=== PATIENT | female | born 1950 | race Caucasian/White ===

== ENCOUNTER 2022-07-19 10:19 | Outpatient (CLI) | payer MEDICARE, SELFPAY ==
--- NOTE | 2022-07-19 10:00 | DI.RAD_ITS ---
Exam(s) XR KNEE RT 2V AP,LAT XR STANDING ALIGNMENT EXAM: XR STANDING ALIGNMENT CLINICAL HISTORY: eval R knee alignment. TECHNIQUE: 2D digital imaging was performed. Standing AP views were performed from the pelvis throu gh the ankles. AP and lateral views of the right knee. COMPARISON: CR XR KNEE RT 2V AP,LAT from 07/19/2022 FINDINGS: BONES: No acute fracture is present. No bony destructive lesion is seen. Leg length discrepancy: Left femoral head projects 9 millimeters superior to the right. JOINTS: Knees: Left total knee prosthesis is unremarkable. There are severe degenerative changes of the medial femoral tibial joint with a [id number] appearance. There is prominent periarticular spu rring. There is flattening of the medial femoral condyle and medial tibial plateau. There is severe varus angulation and compensatory widening of the lateral femoral tibial joint space which also show s periarticular spurring. Prominent spurring is also noted at the patella. There are loose bodies s een anteriorly, beneath the patella. Vascular calcifications are present. The ankle joints are unremarkable. The hip joints show mild acetabular spurring. SOFT TISSUE: Vascular calcifications. IMPRESSION: Severe degenerative changes medial femoral tibial joint of the right knee. . 9 millimeter leg length discrepancy. DATA REPOSITORY: RADIATION DOSE DELIVERED:
== END 2022-07-19 10:20 | disposition home or self-care (01) ==
LOC: DIORS 10:19
PROVIDERS: PCP Family Medicine; Referring Provider Family Medicine; Visit Provider Student in an Organized Health Care Education/Training Program
DX: Z96.641 Presence of right artificial hip joint; M76.891 Other specified enthesopathies of right lower limb, excluding foot
CPT/HCPCS: 99203; 73560; 77073

== ENCOUNTER 2022-08-05 02:58 | Outpatient (CLI) | payer MEDICARE, SELFPAY ==
[2022-08-05 14:17] LABS: HGB 13.7 g/dL (11.2-15.7); MCH 30.4 pg (27.0-33.0); MCHC 32.6 % (32.0-36.0); MCV 93 fL (80-95); MPV 12.4 fL (8.0-11.0); Platelet Count 147 10^3/uL (130-400); RDW 12.6 % (11.7-14.6); RDW-SD 43.4 fL; WBC 7.52 10^3/uL (4.4-10.8)
[2022-08-05 15:08] LABS: Anion Gap 6.7 mmol/L (3-11); BUN 22 mg/dL (7-18); CO2 29.3 mmol/L (21.0-32.0); CREATININE 0.9 mg/dL (0.55-1.02); Calcium 8.8 mg/dL (8.5-10.1); Chloride 106 mmol/L (98-107); Estimated GFR 67.92 (mL/min/1.73m2); Glucose 129 mg/dL (74-106); Potassium 4.2 mmol/L (3.5-5.1); Sodium 142 mmol/L (136-145)
== END 2022-08-05 02:59 | disposition home or self-care (01) ==
LOC: LBO 02:58
PROVIDERS: PCP Family Medicine; Visit Provider Student in an Organized Health Care Education/Training Program
DX: M17.11 Unilateral primary osteoarthritis, right knee (principal); Z01.818 Encounter for other preprocedural examination
CPT/HCPCS: 36415; 80048; 85027

== ENCOUNTER 2022-08-13 05:54 | Day surgery (SDC) | payer MEDICARE, SELFPAY ==
[2022-08-13] VITALS (8 sets, daily range): BP systolic 150–166; BP diastolic 57–81; PULSE 65–77; RESP 14–21; TEMP 35.9–36.6; O2SAT 94–97; BMI 26.6
[2022-08-13] MEDS: Acetaminophen 500 MG TAB 1000 MG PO (06:38)
[2022-08-13] MEDS: Meloxicam 15 MG TAB PO (06:39)
[2022-08-13] MEDS: Gabapentin 300 MG CAP PO (06:39)
[2022-08-13] MEDS: Lactated Ringers 1,000 ML 80 ML IV (06:45)
--- NOTE | 2022-08-13 06:47 | W.ANESPRE ---
General Info Date of Service Date Performed: 08/13/22 Height: 5 ft 3.5 in Weight: 69.4 kg Body Mass Index (BMI): 26.6 Surgical Procedure: Operation Date: 08/13/22 07:55 Proposed Procedure Side Surgeon p Knee Total Arthroplasty, Cemented CR Right Morro Aguayo MD Meds Allergies and Home Medications Allergies Allergy/AdvReac Type Severity Reaction Status Date / Time Sulfa (Sulfonamide Allergy Severe Skin Rash Verified 08/12/22 12:20 Antibiotics) Home Medication Medication Instructions Recorded aspirin 81 mg tablet,delayed 81 mg PO DAILY 07/19/22 release (Adult Aspirin Regimen) captopril 100 mg tablet 100 mg PO TID 07/19/22 clonazepam 0.5 mg tablet 0.5 mg PO BID 07/19/22 doxazosin 2 mg tablet 2 mg PO DAILY 07/19/22 simvastatin 40 mg tablet 40 mg PO DAILY 07/19/22 acetaminophen 500 mg capsule 500 mg PO BID 08/13/22 Current Visit Medications: Current Medications Generic Name Dose Route Start Last Admin Trade Name Jefferson PRN Reason Stop Dose Admin Acetaminophen 1,000 mg 08/13/22 06:00 08/13/22 06:38 Acetaminophen 500 Mg Tab PO 08/13/22 16:00 1,000 mg PREOP IDALIA Administration Gabapentin 300 mg 08/13/22 06:00 08/13/22 06:39 Gabapentin 300 Mg Cap PO 08/13/22 16:00 300 mg PREOP IDALIA Administration Tranexamic Acid 1,000 mg/ 60 mls @ 360 mls/hr 08/13/22 06:00 Sodium Chloride IVPB 08/13/22 16:00 PREOP IDALIA Ringer's Solution 1,000 mls @ 80 mls/hr 08/13/22 06:00 IV 09/11/22 23:59 INFUSION IDALIA Cefazolin Sodium/Dextrose 2 gm in 50 mls @ 100 mls/hr 08/13/22 06:00 Ancef Duplex IVPB 09/11/22 23:59 PREOP IDALIA IV Miscellaneous Supplies 1 each 08/13/22 06:00 Iv Access IV 09/11/22 23:59 DIRECTED IDALIA Meloxicam 15 mg 08/13/22 06:00 08/13/22 06:39 Meloxicam 15 Mg Tab PO 08/13/22 18:00 15 mg PREOP IDALIA Administration Sodium Chloride 0 ml 08/13/22 06:00 Normal Saline Flush 10 Ml Syr IV 09/11/22 23:59 PRN PRN Sodium Chloride 0 ml 08/13/22 06:00 Normal Saline 10 Ml Vial IJ 09/11/22 23:59 DIRECTED PRN Sterile Water 0 ml 08/13/22 06:00 Water,Injection,Sterile 10 Ml Vial IJ 09/11/22 23:59 DIRECTED PRN PFSH Active Problems Active Problems: Problem Status Onset Code Tobacco dependence F17.200 Osteoarthritis of right knee M17.11 Medical History Medical History Hyperlipidemia Hypertension Peripheral edema Denies Squamous cell carcinoma of skin Left anterior tariq - two excisions - last one on 06/21/22 in [facility] - still healing Uterine prolapse Medical History Comments:: pt. states she had a hard waking with your hysterectomy Surgical History Surgical History (Updated 08/13/22 @ 06:19 by Johanna Patino) History of hysterectomy 12/05/21 History of left knee replacement Hx of colonoscopy S/P skin biopsy Status post tubal ligation Tobacco Smoking/Tobacco Use Status: Current every day Tobacco Type: cigarettes Alcohol Alcohol Intake: former Substance Use Substance use: Never Substance use type: does not use Vital Signs and Lab Results Vital Signs Most Recent Vital Signs in EMR: Most Recent Vital Signs Temp Pulse Resp BP Pulse Ox 36.4 C L 66 18 159/67 H 97 08/13/22 06:21 08/13/22 06:21 08/13/22 06:21 08/13/22 06:21 08/13/22 06:21 Lab Results Blood Type / Crossmatch: No Data to Display Complete Blood Count: White Blood Count 7.52 10^3/uL (4.4-10.8) 08/05/22 14:08 Red Blood Count 4.50 10^6/uL (3.93-5.22) 08/05/22 14:08 Hemoglobin 13.7 g/dL (11.2-15.7) 08/05/22 14:08 Hematocrit 42.0 % (36.0-46.0) 08/05/22 14:08 Platelet Count 147 10^3/uL (130-400) 08/05/22 14:08 Complete Metabolic Panel: Sodium 142 mmol/L (136-145) 08/05/22 14:08 Potassium 4.2 mmol/L (3.5-5.1) 08/05/22 14:08 Chloride 106 mmol/L (98-107) 08/05/22 14:08 Carbon Dioxide 29.3 mmol/L (21.0-32.0) 08/05/22 14:08 BUN 22 mg/dL (7-18) H 08/05/22 14:08 Creatinine 0.9 mg/dL (0.55-1.02) 08/05/22 14:08 Est GFR (CKD-EPI 2020) 67.92 (mL/min/1.73m2) 08/05/22 14:08 Calcium 8.8 mg/dL (8.5-10.1) 08/05/22 14:08 Glucose 129 mg/dL (74-106) H 08/05/22 14:08 Liver Function Panel: No Data to Display Coagulation Panel: No Data to Display Cardiac Panel: No Data to Display Arterial Blood Gas: No Data to Display Venous Blood Gas: No Data to Display Pancreas Panel: No Data to Display Thyroid Panel: No Data to Display Infectious Disease: No Data to Display Blood Cultures: No Data to Display Toxicology Panel: No Data to Display Anesthesia Assessment and Plan Anesthesia History Personal History: No History of Anesthesia Complications Family History: No Family History of Anesthesia Complications Exercise Tolerance Exercise Tolerance: Metabolic Equivalents>4 Pertinent Negatives Pertinent Negatives: No Symptoms of GERD, No Major Cardiovascular Symptoms or Complaints, No Major Pulmonary Symptoms or Complaints and No History of CVA/TIA Cardiac & Pulmonary Exam Cardiac Exam: Normal S1/S2 Heart Sounds Pulmonary Exam: Clear Bilateral Breath Sounds Implantable Cardiac Device Does patient have a Pacemaker or an ICD?: No Airway Exam Known Difficult Airway: No Mallampati Class: 3 Mouth Opening: Normal (> 3cm) Thyromental Distance: Greater than 3 cm Neck Range of Motion: Full ROM Neck Circumference: Normal Teeth Condition: Generalized Poor Dentition Airway Comments: Missing back lowers ASA Classification ASA Score: ASA 2 Emergency Case?: No NPO Status NPO Status: NPO Clears >2 hours, Solids >8 hours Anesthesia Plan Resuscitation Status: Full Code Anesthesia Technique: Spinal Anesthesia Airway Planned: Natural Airway Pain Management: Surgeon and patient request nerve block and Intrathecal Analgesia Monitors Used: Standard Monitors
--- NOTE | 2022-08-13 07:24 | DSE_ITS ---
Date of service: 08/13/22 Time of Service: 07:25 DS: Diagnosis Discharge Diagnosis (1) Osteoarthritis of right knee: Status: Chronic Discharge Plan Disposition Patient Disposition: Home Condition: Good Discharge Details Reason For Visit: Right Knee DJD Attending Provider: Morro Aguayo Primary Care Provider: Ray Irizarry Home Meds and New Rx's Prescriptions: New aspirin 81 mg tablet,delayed release (DR/EC) 81 mg PO BID Qty: 60 0RF tramadol 50 mg tablet 50 mg PO Q4H PRNQty: 18 0RF acetaminophen 500 mg tablet 1,000 mg PO Q8H PRN (Reason: pain) Qty: 90 3RF gabapentin 300 mg capsule 300 mg PO QHS Qty: 14 0RF meloxicam 15 mg tablet 15 mg PO DAILY Qty: 30 3RF Continued captopril 100 mg tablet 100 mg PO TID clonazepam 0.5 mg tablet 0.5 mg PO BID doxazosin 2 mg tablet 2 mg PO DAILY simvastatin 40 mg tablet 40 mg PO DAILY Discontinued aspirin [Adult Aspirin Regimen] 81 mg tablet,delayed release (DR/EC) 81 mg PO DAILY acetaminophen [Tylenol Extra Strength] 500 mg Capsule 500 mg PO BID Discharge Instructions Additional Instructions: Total Knee Discharge Instructions Activity: The most important activity is to walk and to work on gentle motion (both flexion and extension). You should try to take short walks a few times a day. It is important that when resting you work on keeping the knee straight. Avoid putting a pillow behind the knee as this will encourage flexion. Work on range of motion exercises as provided by Physical Therapy. - Start outpatient physical therapy within 2 weeks. - You should wear the TIO hose on both legs for 2 weeks. You may remove these at night. You may also use any compression sock in place of the TIO hose. - Utilize [employer] to review exercises, see videos on exercises and obtain basic information pertaining to your surgery and your recovery. Dressing: Remove the Rafael wrap by 2 days after your surgery and put on the TIO stocking given to you from the hospital. Keep the surgical dressing (underneath the RAFAEL wrap) in place for at least one week. After the first week it may be removed and replaced with light gauze and tape or nothing. The wound and dr danial may get wet after 3 days but avoid soaking the dressing or otherwise it will need to be changed. Many people prefer covering the dressing with cling wrap (saran wrap) to minimize it from getting soaked. If it gets wet, just pat dry. If it starts to peel off then it will need to be changed. Medications: - You should take Tylenol and anti-inflammatory Meloxicam as your primary pain control medications. If the Meloxicam is too expensive or not covered, please call the office for another alternative (Advil/Ibuprofen or Naproxen/Aleve) - You have been prescribed a stronger pain medication Tramadol for breakthrough pain, take as needed as prescribed. - You have been prescribed Gabapentin to take at night for restlessness and nerve pain. - You will be taking Aspirin 81mg twice a day for DVT prevention unless instructed otherwise. - If you have constipation you should take Colace or Miralax (both [id number]). It takes most people 3-4 days to have a bowel movement. Follow-up: 2 weeks If you have any acute concerns or questions, please do not hesitate to contact the office at [phone]. You may contact Dr. Aguayo with any questions after hours through the hospital at [phone] or on his cell phone at [phone]. Referrals: Morro Aguayo MD [ [facility] STAFF PHYSICIAN] - Equipment/Supplies: Walker Activity:: Elevate Remove Dressings/Wound Care:: Do Not Remove Shower/Bathe:: Cover Diet:: As Tolerated Discharge Orders Discharge Orders: Discharge Order (Routine); Ordered 08/13/22 Ordered By: Morro Aguayo DS: Summary Time Spent with Patient providing and/or coordinating discharge services: Less than 30 minutes Status at Discharge Functional status at discharge: uses cane/walker Overall status at discharge: patient is progressing back to baseline Mental Status: mental status grossly normal Speech and Movement: speech and movement normal Mood: congruent mood Affect: normal affect Exam Psych Mental Status: mental status grossly normal Speech and Movement: speech and movement normal Mood: congruent mood Affect: normal affect DS: Data Vitals/I&O Vitals and I&O: Vital Signs Temperature 36.4 C L 08/13/22 06:21 Pulse 66 08/13/22 06:21 Pulse Rhythm Regular 08/13/22 06:21 Respiratory Rate 18 01/31/23 06:21 Respiratory Depth Normal 08/13/22 06:21 Blood Pressure 159/67 H 08/13/22 06:21 Pulse Oximetry 97 08/13/22 06:21 Oxygen Delivery Method Room Air 08/13/22 06:21 Oxygen Flow Rate 0 08/13/22 06:21 Pain Level 0 08/13/22 06:21 Intake & Output 08/12/22 08/12/22 08/13/22 11:59 23:59 11:59 Weight 70.307 kg 69.4 kg PFSH All Active Problems Tobacco dependence (Acute) Osteoarthritis of right knee (Chronic) Medical History Hyperlipidemia Hypertension Peripheral edema Denies Squamous cell carcinoma of skin Left anterior tariq - two excisions - last one on 06/21/22 in [facility] - still healing Uterine prolapse Surgical History History of hysterectomy 12/05/21 History of left knee replacement Hx of colonoscopy S/P skin biopsy Status post tubal ligation Social History Smoking/Tobacco Use Status: Current every day Tobacco Type: cigarettes Smoking risk assessment performed?: Yes Alcohol Intake: former Drug use: Never Substance use type: does not use Do you feel safe at home: Yes Do you feel safe in your relationship?: Yes Additional Social history: unable to assess privately Time Spent with Patient Time Spent with Patient: <45 minutes Time was spent: preparing to see the patient(eg.review tests) and ordering medications,tests, procedures
[2022-08-13] MEDS: ceFAZolin 2 GM/50 ML BAG IVPB (08:05)
--- NOTE | 2022-08-13 08:27 | W.ANESNERVE ---
Nerve Block Single Injection Procedure Date and Time Date Performed: 08/13/22 Procedure Start: 07:20 Location Where Procedure Performed Procedure Location: Day Surgery Unit Reason Performed: Postoperative Analgesia Requesting Provider: Morro Aguayo Timeout Performed Timeout Performed: Yes Monitoring Used ECG, Blood Pressure and SpO2 Sterility Sterility: Hand Hygiene, Surgical Cap, Surgical Mask, Sterile Gloves and Chlorhexidine Sedation Given During Procedure Sedation Given (Indicate Dose Given): Versed IV Dose:: 2 mg Patient Mental Status Patient Mental Status: Awake Nerve Block 1st Nerve Block: Laterality: Right Block Type: Adductor Canal Ultrasound Image Saved?: Yes Needle / Catheter Used: 100mm SonoPlex II Local Anesthetic Bolus (Indicate Dose Given): Lidocaine used for local infiltration of skin, Injected in 3-5ml increments after negative blood aspiration and Bupivacaine 0.25% Dose:: 15 ml Additives (Indicate Dose Given): None Ultrasound: Sterile probe cover and gel used Nerve Stimulator: Not Used Paresthesia: None Procedure Tolerated: No Complications and Patient tolerated well Procedure Outcome: Successful Performed By: Nettie Willis Supervised By: Ray Ewing
--- NOTE | 2022-08-13 10:40 | W.ANESPOSTOP ---
Postoperative Evaluation Date, Time and Location Date Performed: 08/13/22 Time Performed: 10:40 Patient Location: Day Surgery Unit Vital Signs Most Recent Imported Vital Signs: Most Recent Vital Signs Temp Pulse Resp BP Pulse Ox 36.5 C 70 14 164/66 H 97 08/13/22 10:19 08/13/22 10:19 08/13/22 10:19 08/13/22 10:19 08/13/22 10:19 Pain Score Most Recent Pain Score: Most Recent Pain Score Pain Level 0 08/13/22 10:19 Assessment Mental Status: Awake (Alert & Oriented to Patient Baseline) Airway and Respiratory Function: Patent airway with normal (patient baseline) respiratory exam Cardiovascular Function: Hemodynamically Stable Hydration Status: Adequately Hydrated Nausea & Vomiting: No Nausea or Vomiting Pain: Pt. Denies Any Pain Peripheral Nerve Block: Regional nerve block not resolved at time of post operative discharge
--- NOTE | 2022-08-13 12:24 | IN_ITS ---
PT Notes Visit Reasons: Right Knee DJD
--- NOTE | 2022-08-13 12:24 | PT.INIE ---
PT Notes Visit Reasons: Right Knee DJD
--- NOTE | 2022-08-13 12:25 | IN_ITS ---
PT Notes Visit Reasons: Right Knee DJD Inpatient Physical Therapy Evaluation Date: 08/13/2022 Referring Doctor: Morro Aguayo MD PT Orders: PT CONSULT: Status post right TKA Precautions: Fall risk Patient Profile/Admitting Diagnosis: 71-year-old female with osteoarthritis of the knees status post left total knee replacement 2 years ago and status post right total knee replacement earlier today. PMHX: PFSH Medical History?(Updated 08/05/22 @ 13:21 by Jenn Choi) Hyperlipidemia Hypertension Peripheral edema DeniesSquamous cell carcinoma of skin Left anterior tariq - two excisions - [facility] 06[facility]21/[facility] - still healingUterine prolapse Surgical History?(Updated 08/05/22 @ 13:21 by Jenn Choi) History of hysterectomy History of left knee replacement S/P skin biopsy Status post tubal ligation Social History/Home Situation: Retired, , and lives in a private home with 5 steps entering the home with railings. Her bedroom and bathroom are on the first floor, she has a shower chair and elevated toilet seat with grab bars in the tub. Current Functional Limitations: Independent with all ADLs prior to her surgery Equipment Owned/DME: Wheeled walker and a shower chair for her tub Subjective: Patient states she is doing well without discomfort and her preop tightness is resolved. 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 Right assistive right knee motion is -5 to approxim ately 75 degrees with endrange drawing throughout the suprapatellar region Strength: She is full motor control throughout and strength generally rated -5/5 except for her right quads at 3/5. She is able to form a supine straight leg raise. Neuro: Intact to light touch and she has full motor control Bed Mobility/Transfers: Independent with assuming the supine to sitting to standing positions. She initially had some lightheadedness with sitting but this cleared up quickly Gait: She ambulated approximately 100 feet with an FW W, weightbearing as tolerated on the right lower extremity. She had a stable gait although I did provide some minimal contact guarding. She was able to ascend and descend stairs with a railing safely and with proper technique Balance: Static Sitting: NormalDynamic Sitting: [Normal static Standing: Stable Dynamic Standing: Stable with a walker Informed Consent/Education: Patient instructed in purpose of PT consult and plan of care. Assessment: Patient is a 71year old fe male referred to physical therapy services with the diagnosis of status post right TKA earlier today.. Patient presents with clinical signs and symptoms consistent with diagnosis, as demonstrated by the following impairment level findings: Limited range of motion of the right knee, with good quad and gluteal activation and stable gait with a wheeled walker.. Impairments are contributing to the following functional limitations: AMPAC score. Patient is assessed as a Low 80518 complexity based on the following: History: See comorbidities and social history Examination: See above for functional limitations impairments Presentation: Stable Decision Making: Low complexity based on her clinical findings Goals: Independent bed mobility and ambulation with an FW W along with full knowledge of her home exercise program Plan of Care/Treatment Plan: Today session consisted of bed mobility activities, gait training with an FW W, weightbearing as tolerated to right lower extremity, education of proper stair climbing, and issuing her written illustrated home exercise program consisting of quad and gluteal sets, ankle pumping, and knee dangling exercises over the edge of the bed. DISCHARGE RECOMMENDATIONS: Home with outpatient PT TREATMENT CODE/TIME: [id number] minutes Disclaimer: This note was created using [employer] voice recognition software. It was reviewed for major content. However, there may be multiple small discrepancies and errors due to the voice recognition aspects of the software.
--- NOTE | 2022-08-13 12:38 | W.PM.OP ---
Date of service: 08/13/22 Time of Service: 09:20 Operative Note Operative Note DATE OF PROCEDURE: 08/13/22 PRE-OP DIAGNOSIS: Right Knee Osteoarthritis POST-OP DIAGNOSIS: same PROCEDURE: Right Total Knee Replacement SURGEON: Morro Aguayo SPINNING MULE OPERATOR: Rosalba Fall ANESTHESIA TYPE: Spinal Refer to Anesthesia Record ESTIMATED BLOOD LOSS: 150 PATHOLOGY: none sent COMPLICATIONS: None Patient was transported to: PACU Patient's condition: stable Implants: 1. Depuy Attune Cruciate Retaining Femoral Component, Size 4 2. Depuy Attune Rotating Platform Tibial Component, Size 3 3. Depuy Attune 4x10 CR,RP Poly 4. Depuy Attune Patellar Component, Size 32 Indications: I have seen Pham in clinic for symptoms of knee arthritis, confirmed with radiographic findings. She has exhausted nonoperative methods and was having significant limitations in daily function and desired better function and less pain. I discussed the technical details of a knee replacement. I explained the risks of the procedure to include, but not limited to, bleeding, infection, pain, stiffness, fracture, damage to nerves and vessels, damage to muscles and tendons, loosening, need for repeat procedure, blood clot and cardiopulmonary demise. Despite these risks, Pham elected to proceed. Findings: There was significant signs of arthritis throughout the knee involving all 3 compartments with large osteophytes. Preoperative range of motion was restricted, 10-80. Procedure Description: Pham was greeted in the preoperative holding area where the correct side was identified and marked. The consent was reviewed with the patient and signed. The history and physical was updated. All questions were answered. Preoperative mediacations were administered: Acetaminophen 1000mg, Celebrex 400mg, and Gabapentin 300mg. An adductor canal block was then administered by the anesthesia team in the PACU. Pham was taken back to the operating room. A spinal anesthestic was then administered. The patient was placed into the supine position on the operating room table. A nonsterile tourniquet was placed high onto the leg but only used for cementing. Posts were placed for positioning during the procedure. All bony prominences were well padded. Prophylactic antibiotics in the form of Cefazolin were administered. 1g of Tranxemic Acid was given intravenously within 30 minutes of incision. The right leg was then prepped with Chloraprep and draped in a standard fashion with impervious stockinette and extremity drape. A second prep with Chloraprep was performed prior to placing Ioband. A timeout to confirm correct identity, side and site, procedure, allergies, anesthesia, and medical concerns was performed. With the knee in some flexion, a midline incision was made overlying the knee. Full thickness skin flaps were raised once the extensor mechanism was encountered. These were raised medially and laterally. Any bleeding was controlled with electrocautery. Once the extensor mechanism was fully exposed, a medial parapatellar arthrotomy was performed in a flexed position. All bleeding from the arthrotomy and the geniculate arteries was coagulated. A medial subperiosteal peel was performed with electrocautery to the midcoronal plane. Due to the significant varus deformity the entire medial tibial plateau was exposed. The fat pad was removed while keeping the patellar tendon protected. The anterior distal femur synovium was removed for later visualization. The ACL and PCL were resected and the anterior horn of the lateral meniscus was transected. The knee was then flexed with the patella everted. Large osteophytes from the tibia were removed. Large osteophytes from the femur were removed. Using a step drill, and based on preoperative templating, the femoral canal was entered. This was done with a step drill without any difficulty. The intramedullary distal femoral cut guide was inserted, set to a 5 degree valgus cut and 10mm cut thickness. The distal femoral cut guide was then held in position and pinned. With the soft tissues protected, the distal cut was performed. This was passed over a few times to ensure a planar cut. I then turned attention to the tibia. The extramedullary guide was placed onto the leg. The distal aspect was slid medial to adjust for position of center of ankle and stay in line with shaft of the tibia. Approximately 3-5 degrees of posterior slope was kept in the proximal cutting guide. The center of the guide was aligned with the PCL. The stylus was used to assess cut thickness. The medial side, most involved side, was set for a 3mm cut,. corresponding to 9mm laterally. This was then held in position and pinned into place with 2 additional pins and a cross pin for stability. The medial and lateral collateral ligaments were protected and the cut was performed. With this completed, it was assessed and noted to be of appropriate dimensions. The guide was removed. A spacer block was inserted and the knee was brought into extension. The 8mm spacer block provided full extension, without hyperextension and with stability of both the medial and lateral collateral ligaments was assessed. The pins from the femur and the tibia were then removed. The distal femur was then sized. The anterior stylus was placed onto the lateral ridge of the anterior femur. This indicated a size 4 femur. The external rotation of the guide was adjusted to 5 degrees to match the epicondylar axis, perpendicular to [place]?s line. The 4-in-1 cutting guide was the placed. The posterior medial femur cut was evaluated and appeared of good thickness. The spacer block was inserted underneath the cutting guide and stability was confirmed in 90 degrees of flexion. An agustin wing was used to confirm appropriate position of the anterior cut to avoid notching. This cutting guide was ensured to be flush on the cut surface and then pinned into place with headed pins. While protecting the soft tissues, quad tendon, and collateral ligaments, the anterior and posterior cuts were performed with a saw. The central two pins were removed and the posterior and anterior chamfers were cut next. The notch-cutting guide was placed. This was pinned to lateralize the femoral component as much as possible while keeping it flush on the cut surface. This was then pinned into position. A reciprocating saw was used to make the small notch cut. A trial CR femoral component was then inserted, impacted down to the cut surfaces, and the lug holes were drilled. A provisional trial tibial component was placed and the knee was brought through range of motion. The polyethylene was trialed until there was good flexion and extension with excellent stability to the medial and lateral collaterals. The patella was tracking without thumbs. The tibial cut surface was fully exposed. The medial and lateral menisci were removed. The tibia was then sized as a 3. The tibia had been previously marked during trialing to correspond to the center of the tibial component to help with rotation. The trial was aligned to this naina, approximately rotated to the medial 1/3rd of the tibial tubercle. The trial was pinned into place. The tibia was prepared with a reamer and a keel punch. The knee was then brought into extension and the patella was measured as 22mm. Using the patellar clamp and cut guide, this was resected to a flat surface with at least 13mm of thickness remaining. The size 32 patella fit the best. This was oriented and then clamped into position. The lugs were drilled. The trial components were removed. The final components, except for the polyethylene were opened on the back table. The periosteal and capsular tissues, especially posteriorly, around the knee were then systematically injected with a periarticular cocktail consisting of 246mg of Ropivacaine, 0.5mg of Epinephrine, 0.08mg of Clonidine, and 30mg of Ketorolac, diluted to 100cc.. The tourniquet was then inflated to 275mmHg. The knee was thoroughly irrigated with a pulse lavage and dried. On the back table, with the implants opened, the cement was mixed. 2 batches of medium viscosity cement were prepared with vacuum assistance. After the cement was ready it was placed on to the back side of the tibial component. Cement was placed onto the the entire surface of the femur. Cement was manual pressurized and impregnated into the cut surface of the tibia. The tibial component was then inserted into the cut surface and impacted into position. Excess cement was removed and the component was reimpacted. Again, excess cement was removed and our attention was then turned to the femur. The femoral cut surface was once again dried and cement was manually impacted into the cut surface. The femoral component was lined with the lug holes and impacted. Excess cement was removed. It was ensured to be down against the cut surface. The trial polyethylene was then inserted and the leg was brought out into full extension for the duration of the cement curing process, approximately 18min. Cement was lastly manually impacted into the cut surface of the patella and the patellar button was clamped into position and held. During this process attention was turned to the gutters of the knee and for all interfaces for any excess cement. While the cement was hardening, the knee was irrigated with Surgiphor Betadine solution. It was allowed to sit in the knee for 3 minutes and then it was thoroughly irrigated with saline. After the cement had finally cured, approximately 18min, the clamp was removed from the patella and the knee was taken through range of motion. A size 10mm polyethylene component provided the best range of motion and stability with less than 2mm gapping with medial and lateral stress and full extension without significant hyperextension. The patella was tracking with a no-thumbs technique. The trial poly was removed and once again the knee was checked for any loose, excess, or errant cement. The poly component was then inserted into position after cleaning and drying the tibial tray. The capsule was then reapproximated with a No. 1 Vicryl at multiple locations. The capsule was finally closed with a No. 2 Stratafix, barbed suture. The tourniquet was then released and the arthrotomy appeared watertight without significant bleeding. The second dosing of 1g TXA was started. Deep tissues were then reapproximated with 0 Vicryl and 2-0 Vicryl. The skin was closed with a running 3-0 Monocryl in a subcuticular fashion. This was reinforced with skin glue. A Mepilex silver dressing was applied along with a [id number] BJ wrap. A CryoCuff was applied. Pham was transferred to the hospital bed without difficulty an suffering no apparent complication. Pham has a good prognosis. Physical therapy will start today and without restrictions, weight-bearing as tolerated. Aspirin 81mg BID will be used for DVT prophylaxis.
== END 2022-08-13 12:58 | disposition home or self-care (01) ==
PROVIDERS: PCP Family Medicine; Visit Provider Student in an Organized Health Care Education/Training Program
PROC: (CPT 27447; principal; 2022-08-13 07:45)
DX: M17.11 Unilateral primary osteoarthritis, right knee (principal); F17.210 Nicotine dependence, cigarettes, uncomplicated; I10 Essential (primary) hypertension; E78.5 Hyperlipidemia, unspecified
CPT/HCPCS: 27447; C1776; 76942; 97161; J0690; J1100; J2250; J2405; J2704

== ENCOUNTER 2022-08-26 14:35 | Outpatient (CLI) | payer MEDICARE, SELFPAY ==
--- NOTE | 2022-08-26 13:30 | DI.RAD_ITS ---
Exam(s) XR KNEE RT 1V XR STANDING ALIGNMENT EXAM: XR STANDING ALIGNMENT CLINICAL HISTORY: 1ST POST OP R TKA. TECHNIQUE: 2D digital imaging was performed. Standing AP views were performed from the pelvis throu gh the ankles. COMPARISON: CR XR KNEE RT 2V AP,LAT from 07/19/2022 CR XR STANDING ALIGNMENT from 07/19/2022 CR XR KNEE RT 1V from 08/26/2022 FINDINGS: BONES: No acute fracture is present. No bony destructive lesion is seen. Leg length discrepancy: No significant overall leg length discrepancy. JOINTS: Knees: Bilateral total knee prostheses. The ankle joints are unremarkable. The hip joints are unremarkable. SOFT TISSUE: Edema right leg and anterior to patella. Vascular calcifications IMPRESSION: Bilateral total knee prostheses. No significant leg length discrepancy. DATA REPOSITORY: RADIATION DOSE DELIVERED:
== END 2022-08-26 14:36 | disposition home or self-care (01) ==
LOC: DIORS 14:35
PROVIDERS: PCP Family Medicine; Referring Provider Family Medicine; Visit Provider Student in an Organized Health Care Education/Training Program
DX: Z96.651 Presence of right artificial knee joint (principal); Z47.1 Aftercare following joint replacement surgery
CPT/HCPCS: 73560; 77073

== ENCOUNTER → 2022-09-30 10:33 | Outpatient (BNVA) | payer MEDICARE, SELFPAY | PROVIDERS: PCP Family Medicine; Referring Provider Family Medicine | DX: Z47.1 Aftercare following joint replacement surgery (principal); Z96.651 Presence of right artificial knee joint; T84.82XA Fibrosis due to internal orthopedic prosthetic devices, implants and grafts, initial encounter ==

== ENCOUNTER 2022-10-03 10:36 | Day surgery (SDC) | payer MEDICARE, SELFPAY ==
[2022-10-03] VITALS (7 sets, daily range): BP systolic 123–183; BP diastolic 47–68; PULSE 75–89; RESP 14–22; TEMP 36.4–36.5; O2SAT 93–97; BMI 25.9
--- NOTE | 2022-10-03 07:56 | W.ANESPRE ---
General Info Date of Service Date Performed: 10/03/22 Height: 5 ft 3.5 in Weight: 67.585 kg Body Mass Index (BMI): 25.9 Surgical Procedure: Operation Date: 10/03/22 12:55 Proposed Procedure Side Surgeon p Knee Manipulation of Knee Right Morro Aguayo MD Meds Allergies and Home Medications Allergies Allergy/AdvReac Type Severity Reaction Status Date / Time Sulfa (Sulfonamide Allergy Severe Skin Rash Verified 10/01/22 15:11 Antibiotics) Home Medication Medication Instructions Recorded captopril 100 mg tablet 100 mg PO TID 07/19/22 clonazepam 0.5 mg tablet 0.5 mg PO BID 07/19/22 doxazosin 2 mg tablet 2 mg PO HS 07/19/22 simvastatin 40 mg tablet 40 mg PO DAILY 07/19/22 meloxicam 15 mg tablet 15 mg PO DAILY #30 tabs 08/13/22 ondansetron 4 mg disintegrating 4 mg PO Q8H PRN nausea and 08/20/22 tablet vomiting #12 tabs aspirin 81 mg tablet,delayed 81 mg PO DAILY 09/30/22 release (Adult Aspirin Regimen) acetaminophen 500 mg tablet 1,000 mg PO Q8H PRN pain #90 tabs 10/03/22 tramadol 50 mg tablet 50 mg PO BID #10 tabs 10/03/22 Current Visit Medications: Current Medications Generic Name Dose Route Start Last Admin Trade Name Freq PRN Reason Stop Dose Admin Ringer's Solution 1,000 mls @ 80 mls/hr 10/03/22 06:00 IV 11/01/22 23:59 INFUSION IDALIA IV Miscellaneous Supplies 1 each 10/03/22 06:00 Iv Access IV 11/01/22 23:59 DIRECTED IDALIA Sodium Chloride 0 ml 10/03/22 06:00 Normal Saline Flush 10 Ml Syr IV 11/01/22 23:59 PRN PRN Sodium Chloride 0 ml 10/03/22 06:00 Normal Saline 10 Ml Vial IJ 11/01/22 23:59 DIRECTED PRN Sterile Water 0 ml 10/03/22 06:00 Water,Injection,Sterile 10 Ml Vial IJ 11/01/22 23:59 DIRECTED PRN PFSH Active Problems Active Problems: Problem Status Onset Code Arthrofibrosis of total knee arthroplasty T84.82XA History of total right knee replacement 08/13/22 Z96.651 Tobacco dependence F17.200 Medical History Medical History Hyperlipidemia Hypertension Peripheral edema Denies Squamous cell carcinoma of skin Left anterior tariq - two excisions - last one on 06/21/22 in [facility] - still healing Uterine prolapse Surgical History Surgical History History of hysterectomy 12/05/21 History of left knee replacement Hx of colonoscopy S/P skin biopsy Status post tubal ligation Tobacco Smoking/Tobacco Use Status: Current every day Tobacco Type: cigarettes Alcohol Alcohol Intake: former Substance Use Substance use: Never Substance use type: does not use Vital Signs and Lab Results Vital Signs Most Recent Vital Signs in EMR: Temp Pulse Resp BP Pulse Ox 36.5 C 84 16 164/68 H 96 10/03/22 11:16 10/03/22 11:16 10/03/22 11:16 10/03/22 11:16 10/03/22 11:16 Lab Results Blood Type / Crossmatch: No Data to Display Complete Blood Count: No Data to Display Complete Metabolic Panel: No Data to Display Liver Function Panel: No Data to Display Coagulation Panel: No Data to Display Cardiac Panel: No Data to Display Arterial Blood Gas: No Data to Display Venous Blood Gas: No Data to Display Pancreas Panel: No Data to Display Thyroid Panel: No Data to Display Infectious Disease: No Data to Display Blood Cultures: No Data to Display Toxicology Panel: No Data to Display Anesthesia Assessment and Plan Anesthesia History Personal History: PONV Family History: No Family History of Anesthesia Complications Exercise Tolerance Exercise Tolerance: Metabolic Equivalents>4 Cardiac & Pulmonary Exam Cardiac Exam: Normal S1/S2 Heart Sounds Pulmonary Exam: Clear Bilateral Breath Sounds Implantable Cardiac Device Does patient have a Pacemaker or an ICD?: No Airway Exam Known Difficult Airway: No Mallampati Class: 3 Mouth Opening: Normal (> 3cm) Thyromental Distance: Greater than 3 cm Neck Range of Motion: Full ROM Neck Circumference: Normal Teeth Condition: Generalized Poor Dentition Airway Comments: Missing back lowers ASA Classification ASA Score: ASA 2 Emergency Case?: No NPO Status NPO Status: NPO Clears >2 hours, Solids >8 hours Anesthesia Plan Resuscitation Status: Full Code Anesthesia Technique: General Anesthesia Airway Planned: Natural Airway Monitors Used: Standard Monitors Preoperative Comments:: 71 yo female for knee manipulation. Denies any health history changes since TKA. sig PMHx: HTN, smoker, Previous Anes: - TKA, spinal, prop sedation, no issues.
[2022-10-03] MEDS: Lactated Ringers 1,000 ML 80 ML IV (11:32)
--- NOTE | 2022-10-03 12:09 | W.PM.DSUDISC ---
Date of service: 10/03/22 Time of Service: 12:17 Discharge Plan Disposition Patient Disposition: Home Condition: Good Discharge Details Reason For Visit: arthrofibrosis of right TKA Attending Provider: Morro Aguayo Primary Care Provider: Ray Irizarry Home Meds and New Rx's Prescriptions: New tramadol 50 mg tablet 50 mg PO BID Qty: 10 0RF Rx Instructions: Take one tablet up to every 4 hours as needed for severe pain acetaminophen 500 mg tablet 1,000 mg PO Q8H PRN Qty: 90 0RF Rx Instructions: Take two tablets up to every 8 hours as needed for pain Continued captopril 100 mg tablet 100 mg PO TID clonazepam 0.5 mg tablet 0.5 mg PO BID doxazosin 2 mg tablet 2 mg PO HS simvastatin 40 mg tablet 40 mg PO DAILY aspirin [Adult Aspirin Regimen] 81 mg tablet,delayed release (DR/EC) 81 mg PO DAILY ondansetron 4 mg tablet,disintegrating 4 mg PO Q8H PRN (Reason: nausea and vomiting) Qty: 12 0RF meloxicam 15 mg tablet 15 mg PO DAILY Qty: 30 3RF Discontinued tramadol 50 mg tablet 50 mg PO BID PRN (Reason: pain) Qty: 30 0RF acetaminophen 500 mg tablet 1,000 mg PO Q8H PRN (Reason: pain) Qty: 90 3RF Discharge Instructions Additional Instructions: Knee Manipulation Discharge Instructions Activity: You should begin moving as soon as possible. You may work on flexion but also equally maintain extension. You may bear weight as tolerated, using crutches/walker only for support/comfort. You should apply ice directly to the knee to help with swelling and elevate when possible (especially in the first few days). You may also find that deep tissue massage throughout the muscles of the inside and back portion of the thigh along with heat can be quite helpful, especially in the evening time. Dressings: You may keep the Band-Aid on for the day. It may be removed tonight. No restrictions with shower bathing. Medications: - Prescribed tramadol which you may take BID as needed for severe pain. - Recommend to take up to 1000mg of Acetaminophen (Tylenol) every 8 hours as needed and Meloxicam 15 mg daily as needed. -Try Tylenol PM or Advil PM to assist with nighttime pain and sleep Follow-up: 7-10 days. Start physical therapy tomorrow. Equipment/Supplies: Partial Weight Bearing Crutches and Walker Remove Dressings/Wound Care:: 48 hours Shower/Bathe:: 48 hours Diet:: As Tolerated Discharge Orders Discharge Orders: Discharge Order (Routine); Ordered 10/03/22 Ordered By: Jenn Choi
--- NOTE | 2022-10-03 13:05 | W.PREOPHP ---
Assessment and Plan Assessment and plan (1) Arthrofibrosis of total knee arthroplasty: Status: Acute Assessment and plan: Pham is a 71-year-old who is status post right knee replacement with notable stiffness. She has restricted range of motion in particular into flexion. She has a history of a stiff total knee on the left side done elsewhere. I recommend we proceed with manipulation under anesthesia. I reviewed this with her and her daughter. I discussed the risk to include bleeding, swelling, pain, fracture, damage to muscles and tendons, recurrence. Despite these risk, she elects to proceed. History of Present Illness History of Present Illness Chief Complaint: Right Knee Postoperative Stiffness Narrative: Terri is a 71-year-old who is status post right knee replacement. She has struggled with her range of motion despite diligent physical therapy. She also had a knee replaced on the left side which is notably stiff. In an effort to improve her motion in light of the history on the left side and her current restrictions, I recommended proceeding with manipulation under anesthesia of the right knee. Please see the previous office note for complete detailed history. She denies any new medical issues. No chest pain or shortness of breath. Review of Systems All systems reviewed & are unremarkable except as noted in HPI and below PFSH All Active Problems Arthrofibrosis of total knee arthroplasty (Acute) History of total right knee replacement (Acute 08/13/22) Tobacco dependence (Acute) Medical History Hyperlipidemia Hypertension Peripheral edema Denies Squamous cell carcinoma of skin Left anterior tariq - two excisions - last one on 06/21/22 in [facility] - still healing Uterine prolapse Surgical History History of hysterectomy 12/05/21 History of left knee replacement Hx of colonoscopy S/P skin biopsy Status post tubal ligation Social History Smoking/Tobacco Use Status: Current every day Tobacco Type: cigarettes Smoking risk assessment performed?: Yes Alcohol Intake: former Drug use: Never Substance use type: does not use Do you feel safe at home: Yes Do you feel safe in your relationship?: Yes Meds Allergies and Home Medications Allergies Allergy/AdvReac Type Severity Reaction Status Date / Time Sulfa (Sulfonamide Allergy Severe Skin Rash Verified 10/01/22 15:11 Antibiotics) Home Medications Medication Instructions Recorded Confirmed Type captopril 100 mg tablet 100 mg PO TID 07/19/22 10/03/22 History clonazepam 0.5 mg tablet 0.5 mg PO BID 07/19/22 10/03/22 History doxazosin 2 mg tablet 2 mg PO HS 07/19/22 10/03/22 History simvastatin 40 mg tablet 40 mg PO DAILY 07/19/22 10/03/22 History meloxicam 15 mg tablet 15 mg PO DAILY #30 tabs 08/13/22 10/03/22 Rx ondansetron 4 mg disintegrating 4 mg PO Q8H PRN nausea and 08/20/22 10/01/22 Rx tablet vomiting #12 tabs aspirin 81 mg tablet,delayed 81 mg PO DAILY 09/30/22 10/03/22 History release (Adult Aspirin Regimen) acetaminophen 500 mg tablet 1,000 mg PO Q8H PRN pain #90 tabs 10/03/22 Rx tramadol 50 mg tablet 50 mg PO BID #10 tabs 10/03/22 Rx Exam Resp Auscultation: clear to auscultation bilaterally Cardio Rate: regular rate Rhythm: regular rhythm Results Last Vital Signs Temp 36.5 C 10/03/22 11:16 Pulse 84 10/03/22 11:16 Resp 16 10/03/22 11:16 BP 164/68 H 10/03/22 11:16 Pulse Ox 96 10/03/22 11:16
[2022-10-03] MEDS: Bupivacaine 0.5% Pres-Free 30 ML VIAL (13:27)
--- NOTE | 2022-10-03 14:08 | W.ANESPOSTOP ---
Postoperative Evaluation Date, Time and Location Date Performed: 10/03/22 Time Performed: 14:08 Patient Location: Day Surgery Unit Vital Signs Most Recent Imported Vital Signs: Most Recent Vital Signs Temp Pulse Resp BP Pulse Ox 36.5 C 84 16 164/68 H 96 10/03/22 13:41 10/03/22 11:16 10/03/22 11:16 10/03/22 11:16 10/03/22 11:16 Pain Score Most Recent Pain Score: Most Recent Pain Score Pain Level 0 10/03/22 11:16 Assessment Mental Status: Awake (Alert & Oriented to Patient Baseline) Airway and Respiratory Function: Patent airway with normal (patient baseline) respiratory exam Cardiovascular Function: Hemodynamically Stable Hydration Status: Adequately Hydrated Nausea & Vomiting: No Nausea or Vomiting Pain: Pain is tolerable per patient Peripheral Nerve Block: Patient did not receive a nerve block
--- NOTE | 2022-10-03 15:56 | ROE_ITS ---
Date of service: 10/03/22 Time of Service: 13:30 Operative Note Operative Note DATE OF PROCEDURE: 10/03/22 PRE-OP DIAGNOSIS: Right Knee Arthrofibrosis s/p Replacement POST-OP DIAGNOSIS: same PROCEDURE: Right Knee Manipulation Under Anesthesia SURGEON: Morro Aguayo ANESTHESIA TYPE: General:No Airway Refer to Anesthesia Record ESTIMATED BLOOD LOSS: 0 PATHOLOGY: none sent TOURNIQUET TIME: 0 COMPLICATIONS: None Patient was transported to: PACU Patient's condition: stable Indications: Pham is a 71 year old female who is s/p knee replacement. Despite diligent work with physical therapy there has been continued stiffness. To assist with mobility, I offered a manipulation under anesthesia. I discussed the risks of the procedure to include bleeding, pain, recurrent stiffness, fracture. Despite these risks, she elects to proceed. Findings: Preoperative flexion = 80 Postoperative flexion = 120 Preoperative extension = 5 Postoperative extension = 5 Procedure Description: The patient was greeted in the preoperative holding area. Identity was confirmed and the correct side was identified and marked. The consent was reviewed the patient and signed. History and physical was updated. Pham was taken back to the operating room. The right side was identified as the correct side. A timeout was performed for safe surgery. A general anesthetic was administered. The knee was then prepped with ChloraPrep and an intra-articular injection of 10 cc of 0.5% bupivacaine was administered. Once a muscle relaxant was fully on board manipulation was performed. Pre- manipulation range of motion was noted. A gentle manipulation was performed first into flexion using a very small lever arm and adding gentle and progressive pressure to the tibia. There is audible and palpable crepitus with improvement in range of motion. This was cycled and repeated multiple times. The leg was then brought into extension and gentle anterior posterior pressure was applied with a supported hand behind the proximal tibia and knee. This was brought back into flexion was once again manipulated with gentle and progressive pressure. Final range of motion numbers were recorded. A Band-Aid was applied to the injection site. She was awakened from anesthesia and taken to the PACU in stable condition.
== END 2022-10-03 15:00 | disposition home or self-care (01) ==
PROVIDERS: PCP Family Medicine; Visit Provider Student in an Organized Health Care Education/Training Program
PROC: (CPT 27570; principal; 2022-10-03 12:45)
DX: T84.82XA Fibrosis due to internal orthopedic prosthetic devices, implants and grafts, initial encounter (principal); Z96.651 Presence of right artificial knee joint
CPT/HCPCS: 27570; J1885; J2704

== ENCOUNTER → 2022-10-25 10:30 | Outpatient (BNVA) | payer MEDICARE, SELFPAY | PROVIDERS: PCP Family Medicine; Referring Provider Family Medicine; Visit Provider Student in an Organized Health Care Education/Training Program | DX: Z47.1 Aftercare following joint replacement surgery (principal); Z96.651 Presence of right artificial knee joint; T84.82XA Fibrosis due to internal orthopedic prosthetic devices, implants and grafts, initial encounter ==

== ENCOUNTER → 2022-12-06 10:57 | Outpatient (BNVA) | payer MEDICARE, SELFPAY | PROVIDERS: PCP Family Medicine; Visit Provider Physician Assistant | DX: T84.82XA Fibrosis due to internal orthopedic prosthetic devices, implants and grafts, initial encounter (principal); Z96.651 Presence of right artificial knee joint ==

== ENCOUNTER 2023-08-25 11:35 | Outpatient (CLI) | payer MEDICARE, SELFPAY ==
--- NOTE | 2023-08-25 11:03 | DI.RAD_ITS ---
Exam(s) XR KNEE RT 2V AP,LAT EXAM: XR KNEE RT 2V AP,LAT CLINICAL HISTORY: ANNUAL F/U R TKA. TECHNIQUE: 2D digital imaging was performed. Two images were obtained. AP and lateral views were ob tained. COMPARISON: CR XR KNEE RT 2V AP,LAT from 07/19/2022 CR XR KNEE RT 1V from 08/26/2022 CR XR STANDING ALIGNMENT from 08/26/2022 FINDINGS: BONES: There are stable post operative changes of a right total knee replacement present. No fractur e or dislocation. JOINTS: The orthopedic hardware is in good position. No evidence of hardware loosening. There is a small joint effusion. SOFT TISSUE: Vascular calcifications are present. IMPRESSION: Stable postoperative changes. DATA REPOSITORY: RADIATION DOSE DELIVERED:
== END 2023-08-25 11:36 | disposition home or self-care (01) ==
LOC: DIORS 11:36
PROVIDERS: PCP Nurse Practitioner Family; Referring Provider Nurse Practitioner Family; Visit Provider Student in an Organized Health Care Education/Training Program
DX: Z96.651 Presence of right artificial knee joint (principal); Z47.1 Aftercare following joint replacement surgery; T84.82XA Fibrosis due to internal orthopedic prosthetic devices, implants and grafts, initial encounter
CPT/HCPCS: 99213; 73560